=== PATIENT | female | born 1955 | race Caucasian/White ===

== ENCOUNTER → 2017-03-26 | Outpatient (CLI) | payer OTHER ==
[~2017-03-26] MED LIST: CALTTAB PO; ESTR.025T TOPICAL; GLUC500T4 PO; MELO-1 PO; OMEGCAP PO; PANT40TA3 PO
[2017-03-26 09:07] LABS: HEMATOCRIT 39.2 % (35.0-46.0); MEAN CELL VOLUME 94.2 FL (80.0-100.0); MEAN CORPUSCULAR HEMOGLOBIN 30.9 PG (27.0-34.0); MEAN CORPUSCULAR HGB CONC 32.8 % (32.0-36.0); PLATELET COUNT 228 TH/MM3 (150-450); RED BLOOD COUNT 4.16 MIL/MM3 (4.00-5.30); RED CELL DISTRIBUTION WIDTH 13.8 % (11.6-17.2); REVIEW FLAG FINAL; WHITE BLOOD COUNT 5.3 TH/MM3 (4.0-11.0)
[2017-03-26 09:31] LABS: ANION GAP 5 MEQ/L (5-15); AST (GOT) 17 U/L (15-37); BICARBONATE 30.2 MEQ/L (21.0-32.0); BLOOD UREA NITROGEN 16 MG/DL (7-18); CHLORIDE 104 MEQ/L (98-107); GLOMERULAR FILTRATION RATE 79 ML/MIN (>89); GLUCOSE,FASTING 70 MG/DL (74-99); POTASSIUM 4.3 MEQ/L (3.5-5.1); SODIUM (NA) 139 MEQ/L (136-145)
[2017-03-26 09:32] LABS: ALT (GPT) 21 U/L (10-53)
[2017-03-26 09:41] LABS: ALKALINE PHOSPHATASE 76 U/L (45-117); HDL CHOLESTEROL 96.8 MG/DL (40.0-60.0); LDL CHOLESTEROL 136 MG/DL (0-99); TOTAL BILIRUBIN ADULT 0.5 MG/DL (0.2-1.0)
== END ==
LOC: CLAB 08:43
PROVIDERS: ATTEND Family Medicine
DX: M79.1 Myalgia (principal); E78.4 Other hyperlipidemia; K21.0 Gastro-esophageal reflux disease with esophagitis; G43.109 Migraine with aura, not intractable, without status migrainosus; C10.9 Malignant neoplasm of oropharynx, unspecified
CPT/HCPCS: 36415; 80053; 80061; 84443; 85027